=== PATIENT | female | born 1960 | race Caucasian/White ===

== ENCOUNTER 2023-07-22 17:19 | Emergency (ER) | payer OTHER, MEDICAID ==
[~2023-07-22] VITALS: Ht 165.1 cm; Wt 84.2 kg
[2023-07-22 17:50] VITALS: BP 159/97; PULSE 113; RESP 18; TEMP 96.6; O2SAT 96
[2023-07-22] MEDS ORDERED: cefTRIAXone SOD 1,000 MG VL IM ONE (18:00)
[2023-07-22] MEDS ORDERED: BACDST PO (18:05)
== END 2023-07-22 18:16 | disposition home or self-care (01) ==
LOC: ER 17:19
DX: N39.0 Urinary tract infection, site not specified (principal); Z90.710 Acquired absence of both cervix and uterus
CPT/HCPCS: 96372; 99283; J0696